=== PATIENT | male | born 1985 | race Caucasian/White ===

== ENCOUNTER 2017-09-08 14:43 | Emergency (ER) | payer OTHER ==
[2017-09-08] MEDS ORDERED: HYDROmorphone 1 MG/ML Syringe IVPUSH ONE (14:51)
[2017-09-08] MEDS ORDERED: Sodium Chloride 0.9% 1,000 ML IV SCH ×2 (15:00)
[2017-09-08] MEDS ORDERED: Midazolam 1 MG/ML 2 ML SDV IVPUSH ONE ×2 (15:02→15:15)
--- NOTE | 2017-09-08 15:07 | EDM.PDOC ---
<Edmundo Santiago - Last Filed: 09/08/17 15:07> ED HPI GENERAL MEDICAL PROBLEM - General Chief Complaint: Lower Extremity Injury/Pain Stated Complaint: [facility] Time Seen by Provider: 09/08/17 15:07 Right Leg Pain Score (Numeric/FACES): 8 - Related Data Allergies Allergy/AdvReac Type Severity Reaction Status Date / Time No Known Allergies Allergy Verified 09/08/17 14:58 Home Meds: Home Meds . [No Known Home Meds] 09/08/17 [History] Course - Vital Signs Last Recorded V/S: Last Vital Signs Temp 98.0 F 09/08/17 15:54 Pulse 105 H 09/08/17 15:54 Resp 18 09/08/17 15:54 BP 154/84 H 09/08/17 15:21 Pulse Ox 100 09/08/17 15:54 - Orders/Labs/Meds Orders: Active Orders 24 hr Category Date Time Status Ankle Min 3V Rt [CR] Stat Exams 09/08/17 15:13 Taken Ankle wo Cont Rt [CT] Stat Exams 09/08/17 16:55 Taken Foot wo Cont Rt [CT] Stat Exams 09/08/17 16:54 Taken Tibia Fibula Rt [CR] Stat Exams 09/08/17 15:13 Taken Labs: Laboratory Tests 09/08/17 09/08/17 Range/Units 14:59 14:59 WBC 12.06 H (4.23-9.07) K/mm3 RBC 4.72 (4.63-6.08) M/mm3 Hgb 14.8 (13.7-17.5) gm/L Hct 44.3 (40.1-51.0) % MCV 93.9 H (79.0-92.2) fl MCH 31.4 (25.7-32.2) pg MCHC 33.4 (32.2-35.5) g/dl RDW Std Deviation 41.9 (35.1-43.9) fL Plt Count 309 (163-337) K/mm3 MPV 9.7 (9.4-12.3) fl Neut % (Auto) 80.6 H (34.0-67.9) % Lymph % (Auto) 14.2 L (21.8-53.1) % [place] % (Auto) 4.9 L (5.3-12.2) % Eos % (Auto) 0.1 L (0.8-7.0) Baso % (Auto) 0.1 (0.1-1.2) % Neut # (Auto) 9.73 H (1.78-5.38) K/mm3 Lymph # (Auto) 1.71 (1.32-3.57) K/mm3 [place] # (Auto) 0.59 (0.30-0.82) K/mm3 Eos # (Auto) 0.01 L (0.04-0.54) K/mm3 Baso # (Auto) 0.01 (0.01-0.08) K/mm3 Sodium 144 (136-145) mEq/L Potassium 3.8 (3.5-5.1) mEq/L Chloride 105 (98-107) mEq/L Carbon Dioxide 27 (21-32) mEq/L Anion Gap 15.8 H (5-15) BUN 14 (7-18) mg/dL Creatinine 0.9 (0.7-1.3) mg/dL Est Cr Clr Drug Dosing 116.74 mL/min Estimated GFR (MDRD) > 60 (>60) mL/min BUN/Creatinine Ratio 15.6 (14-18) Glucose 97 (74-106) mg/dL Calcium 10.0 (8.5-10.1) mg/dL Total Bilirubin 0.6 (0.2-1.0) mg/dL AST 44 H (15-37) U/L ALT 46 (16-63) U/L Alkaline Phosphatase 95 (46-116) U/L Total Protein 8.6 H (6.4-8.2) g/dl Albumin 4.5 (3.4-5.0) g/dl Globulin 4.1 gm/dL Albumin/Globulin Ratio 1.1 (1-2) Meds: Medications Discontinued Medications Generic Name Dose Route Start Last Admin Trade Name Freq PRN Reason Stop Dose Admin Fentanyl 100 mcg 09/08/17 15:14 09/08/17 15:20 Sublimaze IVPUSH 09/08/17 15:15 100 mcg ONETIME ONE Administration Hydromorphone HCl 1 mg 09/08/17 14:51 09/08/17 14:57 Dilaudid IVPUSH 09/08/17 14:52 1 mg ONETIME ONE Administration Hydromorphone HCl 0.5 mg 09/08/17 16:56 09/08/17 16:59 Dilaudid IVPUSH 09/08/17 16:57 0.5 mg ONETIME ONE Administration Sodium Chloride 1,000 mls @ 150 mls/hr 09/08/17 15:00 09/08/17 16:04 Normal Saline IV 150 mls/hr ASDIRECTED JERRICA Administration Sodium Chloride 1,000 mls @ 999 mls/hr 09/08/17 15:00 09/08/17 14:57 Normal Saline IV 999 mls/hr ASDIRECTED JERRICA Administration Midazolam HCl 2.5 mg 09/08/17 15:02 09/08/17 15:07 Versed 1 Mg/Ml IVPUSH 09/08/17 15:03 2.5 mg ONETIME ONE Administration Midazolam HCl 2 mg 09/08/17 15:15 09/08/17 15:19 Versed 1 Mg/Ml IVPUSH 09/08/17 15:16 2 mg ONETIME ONE Administration Departure - Departure Disposition: DC/Tfer to [facility] 02 Clinical Impression: Fracture of ankle, trimalleolar, closed Qualifiers: Encounter type: initial encounter Laterality: right Qualified Code(s): S82.851A - Displaced trimalleolar fracture of right lower leg, initial encounter for closed fracture - Discharge Information Referrals: PCP,None [Primary Care Provider] - Forms: ED Department Discharge - My Orders Last 24 Hours: My Active Orders 09/08/17 15:13 Ankle Min 3V Rt [CR] Stat Tibia Fibula Rt [CR] Stat 09/08/17 16:54 Foot wo Cont Rt [CT] Stat 09/08/17 16:55 Ankle wo Cont Rt [CT] Stat - Assessment/Plan Last 24 Hours: My Active Orders 09/08/17 15:13 Ankle Min 3V Rt [CR] Stat Tibia Fibula Rt [CR] Stat 09/08/17 16:54 Foot wo Cont Rt [CT] Stat 09/08/17 16:55 Ankle wo Cont Rt [CT] Stat <Fausto Lui O - Last Filed: 09/08/17 22:32> ED HPI GENERAL MEDICAL PROBLEM - General Source of Information: Reports: Patient History Limitations: Reports: No Limitations - History of Present Illness INITIAL COMMENTS - FREE TEXT/NARRATIVE: Patient is a 31-year-old male who presents to the ED via ambulance with a crush injury with obvious displaced fracture of the right distal tib-fib. This occurred on the job site. Patient states while working underneath a irby. For some reason the break holding the cable was released causing the swivel which weighs approximately 3 tons to fall from a undetermined height landing on the patient's right lower leg. Patient sustained no additional injuries. Ambulance was called and the patient was splinted and transported to the ED. Patient rates the pain a 8 out of 10 localized to the fracture area. No numbness or tingling or sensory deficits distally. Still able to move his toes freely. Patient has no additional past medical history and is currently taking no medications. Patient does smoke one pack every 2 days. Alcohol use rarely. Denies recreational drug use. Last meal was at 5:00 this morning. Review of Systems - Review of Systems Review Of Systems: See Below Respiratory: Reports: No Symptoms Cardiovascular: Reports: No Symptoms GI/Abdominal: Reports: No Symptoms Musculoskeletal: Reports: Foot Pain (right), Joint Pain (right ankle), Joint Swelling (right ankle). Denies: Neck Pain, Back Pain Neurological: Denies: Numbness, Tingling ED EXAM, GENERAL - Physical Exam Exam: See Below Exam Limited By: No Limitations General Appearance: Alert, WD/WN, Moderate Distress Ears: Hearing Grossly Normal Nose: Normal Inspection Throat/Mouth: Normal Voice, No Airway Compromise Head: Atraumatic, Normocephalic Neck: Normal Inspection, Supple Respiratory/Chest: No Respiratory Distress, Lungs Clear, Normal Breath Sounds, No Accessory Muscle Use, Chest Non-Tender Cardiovascular: Normal Peripheral Pulses, Regular Rate, Rhythm Peripheral Pulses: 2+: Radial (L), Dorsalis Pedis (R) Extremities: Other (Obvious deformity of the right ankle with foot externally rotated. Foot is red in color cool to touch. No sensory changes noted. ) Neurological: Alert, Oriented, CN II-XII Intact, Normal Cognition, No Motor/ Sensory Deficits Psychiatric: Normal Affect, Normal Mood Skin Exam: Warm, Dry Course - Orders/Labs/Meds Labs: Laboratory Tests 09/08/17 09/08/17 Range/Units 14:59 14:59 WBC 12.06 H (4.23-9.07) K/mm3 RBC 4.72 (4.63-6.08) M/mm3 Hgb 14.8 (13.7-17.5) gm/L Hct 44.3 (40.1-51.0) % MCV 93.9 H (79.0-92.2) fl MCH 31.4 (25.7-32.2) pg MCHC 33.4 (32.2-35.5) g/dl RDW Std Deviation 41.9 (35.1-43.9) fL Plt Count 309 (163-337) K/mm3 MPV 9.7 (9.4-12.3) fl Neut % (Auto) 80.6 H (34.0-67.9) % Lymph % (Auto) 14.2 L (21.8-53.1) % [place] % (Auto) 4.9 L (5.3-12.2) % Eos % (Auto) 0.1 L (0.8-7.0) Baso % (Auto) 0.1 (0.1-1.2) % Neut # (Auto) 9.73 H (1.78-5.38) K/mm3 Lymph # (Auto) 1.71 (1.32-3.57) K/mm3 [place] # (Auto) 0.59 (0.30-0.82) K/mm3 Eos # (Auto) 0.01 L (0.04-0.54) K/mm3 Baso # (Auto) 0.01 (0.01-0.08) K/mm3 Sodium 144 (136-145) mEq/L Potassium 3.8 (3.5-5.1) mEq/L Chloride 105 (98-107) mEq/L Carbon Dioxide 27 (21-32) mEq/L Anion Gap 15.8 H (5-15) BUN 14 (7-18) mg/dL Creatinine 0.9 (0.7-1.3) mg/dL Est Cr Clr Drug Dosing 116.74 mL/min Estimated GFR (MDRD) > 60 (>60) mL/min BUN/Creatinine Ratio 15.6 (14-18) Glucose 97 (74-106) mg/dL Calcium 10.0 (8.5-10.1) mg/dL Total Bilirubin 0.6 (0.2-1.0) mg/dL AST 44 H (15-37) U/L ALT 46 (16-63) U/L Alkaline Phosphatase 95 (46-116) U/L Total Protein 8.6 H (6.4-8.2) g/dl Albumin 4.5 (3.4-5.0) g/dl Globulin 4.1 gm/dL Albumin/Globulin Ratio 1.1 (1-2) - Re-Assessments/Exams Free Text/Narrative Re-Assessment/Exam: Patient is a 31-year-old male transported by ambulance with obvious unstable fracture to the distal tib-fib presumably trimalleolar. Patient had palpable dorsalis pedis with Doppler signal to the posterior tibialis. Foot was cool to touch mildly red with no sensory or motor deficits noted. Administered 1 mg IV of Dilaudid and 2.5 mg of Versed. O2 sats decreased to 89% on room air, supplemental O2 applied via NC 2lpm. Telemetry applied as well. Attempted to reduce the fracture with no luck. Ordered an additional 100 g of fentanyl and 2 [address] Had Dr[address] Yeager assist me in reducing the fracture. This was completed with no complications. Posteriors splint along with a stirrup splint applied with no complications. Patient had full sensory motor deficits distally present. Palpable dorsalis pedis. X-ray of the right ankle is being obtained. Had polar ice machine applied. Will arrange transport to [place] for orthopedic evaluation and surgery. X-ray of the right ankle: Reveals mild to moderate displaced trimalleolar fracture. Splint in place. Reviewed with Dr. Santiago. 09/08/17 16:[address] Attila Richardson Orthopedic Surgeon at [facility]. He has accepted the patient. We are waiting for the ambulance to arrive. They stated one hour. Transfer documents have been completed. 09/08/17 16:52 Further review of the x-ray I do believe there are fractures associated to the foot. Thus will obtain CT of the ankle and foot ordered. CT of the ankle/foot revealed: Comminuted displaced trimalleolar fracture- dislocation of the right ankle. Most of the fracture segments are displaced laterally. All films have been sent to [facility] and [facility] for further review by orthopedic surgeon. Departure - Departure Time of Disposition: 17:17 Condition: Good
[2017-09-08] MEDS ORDERED: fentaNYL 100 MCG/2 ML SDV IVPUSH ONE (15:14)
[2017-09-08] MEDS ORDERED: HYDROmorphone 0.5 MG/0.5 ML Syringe IVPUSH ONE (16:56)
--- NOTE | 2017-09-09 09:54 | CT ---
CT right ankle Technique: Multiple axial sections were obtained through the right ankle. Reconstructed coronal and sagittal images were reviewed. Mildly comminuted fracture identified within the medial malleolus. Displacement is seen inferior and laterally. Mildly comminuted lateral malleolus fracture is seen with displacement by about a shaft width. The tibia is shifted in a lateral direction by about 1.5 cm. Small posterior fragments are seen off the posterior malleolus compatible with minimal fracturing. Diffuse soft tissue swelling is identified. Impression: 1. Trimalleolar fracture. Medial and lateral malleolus fracture show significant displacement. Unstable ankle mortise is seen with shifting of the talus in a lateral direction as compared to the tibia. 2. Soft tissue swelling is noted. Diagnostic code #3 I agree with preliminary report issued by [facility] ([facility] report finalized on 09/08/17, 7:03 PM Central Time)
--- NOTE | 2017-09-09 09:54 | CR ---
Right ankle: Four views of the right ankle were obtained. Comparison: No prior study. Displaced medial and lateral malleolar fractures are seen. Medial malleolus fracture is mildly comminuted. Lateral malleolus fracture is also comminuted. Small fracture identified off the posterior malleolus. Fiberglass cast or splint is in place. There is shifting of the tibia and fibula in a medial direction in relation ro the talus. Impression: 1. Displaced and unstable trimalleolar fractures. Diagnostic code #3
--- NOTE | 2017-09-09 09:54 | CT ---
CT right foot Technique: Multiple axial sections through the right foot were obtained. Intravenous contrast was not utilized. Reconstructed coronal and sagittal images were reviewed. Findings: Ankle fracture again seen showing displacement and comminution. Talus and calcaneus appear intact. Tarsal bones show no fracture. Metatarsals appear intact. First through fifth toes also appear to be intact. Soft tissue swelling extends from the ankle into the foot. Impression: 1. Displaced ankle fracture as described on CT ankle exam. 2. No acute bony abnormality seen on CT study of the right foot. Diagnostic code #3 I agree with preliminary report issued by [facility] ([facility] report finalized on 09/08/17, 7:03 PM Central Time)
--- NOTE | 2017-09-09 09:54 | CR ---
Right tibia and fibula: Two views of the right tibia and fibula were obtained. Displaced trimalleolar fracture is again noted. Fiberglass cast or splint is in place. No proximal abnormality is identified within the right tibia or fibula. Impression: 1. Ankle fracture is again seen. 2. No proximal abnormality is seen within the right tibia or fibula. Diagnostic code #3
== END 2017-09-08 17:20 ==
LOC: JD.ED 14:43
DX: S82.851A Displaced trimalleolar fracture of right lower leg, initial encounter for closed fracture (principal); W23.0XXA Caught, crushed, jammed, or pinched between moving objects, initial encounter
CPT/HCPCS: 27818; 36415; 73590; 73610; 73700; 80053; 85025; 96361; 96374; 96375; 96376; 99285; J1170; J2250; J3010; J7040; 27840; 29515; 99284-25

== ENCOUNTER 2019-12-10 09:49 | Emergency (ER) | payer OTHER ==
--- NOTE | 2019-12-10 10:40 | EDM.PDOC ---
<Lien Mathew - Last Filed: 12/10/19 10:54> ED HPI GENERAL MEDICAL PROBLEM - General Chief Complaint: Upper Extremity Injury/Pain Stated Complaint: JAW PAIN AND RT ARM PAIN Time Seen by Provider: 12/10/19 10:19 Source of Information: Reports: Patient History Limitations: Reports: No Limitations - History of Present Illness INITIAL COMMENTS - FREE TEXT/NARRATIVE: 34-year-old male presents with right upper arm pain that started two days ago. He has also been experiencing a "locking" sensation in his throat and jaw. The right arm pain is localized over the right deltoid and occasionally radiates into right forearm. He rates the pain at a 5/10 that comes and goes. No numbness or tingling into fingers but some tingling localized over the deltoid pain. Denies loss of ROM or any injury to the area. He did state that sleeping on it seems to make the pain worse. He has a history of a crush injury to his right lower extremity that has caused him to have constant pain throughout the right side of his body, and he feels that may be contributing to his current pain. He also has a history of anxiety and depression but states he is no longer taking medications for it because they made him tired, and he states he was told by his primary care provider and psychiatrist that he is a "pill seeker." He also has acid reflux that he is treating with pantoprazole. Onset: Other (2 days ago) Duration: Intermittent Location: Reports: Neck, Upper Extremity, Right Quality: Reports: Ache Severity: Moderate Worsens with: Reports: Other (sleeping on it) Associated Symptoms: Reports: Other ("jaw locking" although his description appears to be more like throat tightening). Denies: Chest Pain, Fever/Chills, Shortness of Breath, Weakness Right Arm Pain Score (Numeric/FACES): 5 - Related Data Allergies Allergy/AdvReac Type Severity Reaction Status Date / Time No Known Allergies Allergy Verified 12/10/19 09:58 Home Meds: Home Meds ALPRAZolam [Alprazolam] 0.5 mg PO BID PRN 12/10/19 [History] Lisinopril [Zestril] 10 mg PO DAILY 12/10/19 [History] Naproxen [Naprosyn] 500 mg PO Q12HR #14 tab 12/10/19 [Rx] Past Medical History Other HEENT History: wears glasses Cardiovascular History: Reports: Hypertension Gastrointestinal History: Reports: GERD (treated with Pantoprazole) Other Musculoskeletal History: work-related crush injury to right lower extremity Psychiatric History: Reports: Anxiety, Depression - Past Surgical History HEENT Surgical History: Reports: Tonsillectomy GI Surgical History: Reports: Hernia, Abdominal Musculoskeletal Surgical History: Reports: Other (See Below) Other Musculoskeletal Surgeries/Procedures:: right ankle surgery-fusion Social & Family History - Tobacco Use Smoking Status *Q: Former Smoker Used Tobacco, but Quit: Yes Month/Year Tobacco Last Used: quit 3 years ago - Caffeine Use Caffeine Use: Reports: Soda - Living Situation & Occupation Occupation: Unemployed Review of Systems - Review of Systems Review Of Systems: See Below Constitutional: Reports: No Symptoms Eyes: Reports: Glasses Ears: Reports: No Symptoms Nose: Reports: No Symptoms Mouth/Throat: Reports: Other ("jaw locking" although he points more to his throat) Respiratory: Reports: No Symptoms Cardiovascular: Reports: No Symptoms GI/Abdominal: Reports: Other (acid reflux). Denies: Abdominal Pain, Constipation, Diarrhea, Nausea, Vomiting Genitourinary: Reports: Other (darker yellow urine, feels he may be dehydrated) . Denies: Dysuria, Hematuria Musculoskeletal: Reports: Arm Pain (right shoulder/deltoid pain), Leg Pain ( right leg (constant due to history of crush injury)), Muscle Pain (right deltoid ). Denies: Neck Pain, Back Pain Skin: Reports: No Symptoms Neurological: Reports: Tingling (localized over the right deltoid, none into the hand). Denies: Headache, Numbness, Trouble Speaking, Weakness Psychiatric: Reports: Depression, Anxiety ED EXAM, GENERAL - Physical Exam Exam: See Below Exam Limited By: No Limitations General Appearance: Alert, WD/WN, No Apparent Distress Throat/Mouth: Normal Inspection, Normal Lips, Normal Oropharynx, Normal Voice, No Airway Compromise Head: Atraumatic, Normocephalic Neck: Normal Inspection, Supple, Non-Tender, Full Range of Motion Respiratory/Chest: No Respiratory Distress, Lungs Clear, Normal Breath Sounds, No Accessory Muscle Use, Chest Non-Tender Cardiovascular: Normal Peripheral Pulses, Regular Rate, Rhythm, No Murmur Peripheral Pulses: 3+: Radial (L), Radial (R) GI/Abdominal: Normal Bowel Sounds, Soft, Non-Tender, No Distention Back Exam: Normal Inspection, Full Range of Motion. No: Paraspinal Tenderness, Vertebral Tenderness Extremities: Normal Inspection, Normal Range of Motion, Normal Capillary Refill , Arm Pain (over right deltoid). No: Joint Swelling, Increased Warmth, Redness Neurological: Alert, Oriented, Normal Cognition, No Motor/Sensory Deficits Psychiatric: Anxious Skin Exam: Warm, Dry, Intact, Normal Color, No Rash Lymphatic: No Adenopathy Course - Vital Signs Last Recorded V/S: Last Vital Signs Temp 98.4 F 12/10/19 10:01 Pulse 87 12/10/19 10:01 Resp 13 12/10/19 10:01 BP 138/100 H 12/10/19 10:01 Pulse Ox 100 12/10/19 10:01 Departure - Departure Disposition: Home, Self-Care 01 Clinical Impression: Shoulder pain, right Qualifiers: Chronicity: acute Qualified Code(s): M25.511 - Pain in right shoulder - Discharge Information Prescriptions: Naproxen [Naprosyn] 500 mg PO Q12HR #14 tab Instructions: Shoulder Pain Referrals: Tomasa Sin PA-C [Primary Care Provider] - Forms: ED Department Discharge Additional Instructions: Rest arm and shoulder, no heavy lifting, alternate ice and heat as needed. Naprosyn 500 mg twice daily for pain and inflammation. [facility] See Orthopedist tomorrow as planned. Sepsis Event Note - Evaluation Sepsis Screening Result: No Definite Risk - Focused Exam Vital Signs: Vital Signs Temp Pulse Resp BP Pulse Ox 12/10/19 10:01 98.4 F 87 13 138/100 H 100 Date Exam was Performed: 12/10/19 Time Exam was Performed: 10:54 <Deangelo Tong - Last Filed: 12/10/19 20:20> Course - Re-Assessments/Exams Free Text/Narrative Re-Assessment/Exam: 12/10/19 20:15 Initial hx and exam was done by FITO Kebede student. I agree with her hx and exam as documented. I have also interviewed and examined patient. 12/10/19 20:18 Departure - Departure Time of Disposition: 10:45 Condition: Fair Sepsis Event Note - Focused Exam Date Exam was Performed: 12/10/19 Time Exam was Performed: 20:15
== END 2019-12-10 12:00 | disposition home or self-care (01) ==
LOC: JD.ED 09:49
DX: M25.511 Pain in right shoulder (principal); K21.9 Gastro-esophageal reflux disease without esophagitis; I10 Essential (primary) hypertension; F41.9 Anxiety disorder, unspecified; Z79.899 Other long term (current) drug therapy; Z87.891 Personal history of nicotine dependence
CPT/HCPCS: 99283

== ENCOUNTER 2019-12-12 17:27 | Emergency (ER) | payer OTHER ==
--- NOTE | 2019-12-12 18:20 | EDM.PDOC ---
ED HPI GENERAL MEDICAL PROBLEM - General Chief Complaint: Lower Extremity Injury/Pain Stated Complaint: R FOOT PAIN Time Seen by Provider: 12/12/19 17:38 Source of Information: Reports: Patient, RN Notes Reviewed History Limitations: Reports: No Limitations - History of Present Illness INITIAL COMMENTS - FREE TEXT/NARRATIVE: Patient is a 34-year-old male who presents to the ED for evaluation of increased right foot pain. Patient notes that he has seen Dr. Daniel Soriano through the bone and joint clinic at [facility] multiple times for a crush injury that he had of his right foot in 2017. Patient notes that he has been given prescriptions for tramadol for pain relief, but this does not seem to be relieving the pain much any longer. He notes that he had an appointment with Dr. Soriano yesterday, and it felt like he could wait about 4 to 6 weeks for surgery, but he states today the pain has gotten too painful and he does not think he can wait 4 to 6 weeks, he was wanting to know if we could contact Dr. Soriano and try to get the surgery moved sooner rather than later. He notes that he has had about 8 surgeries to this ankle and right foot. Right Foot Pain Score (Numeric/FACES): 10 - Related Data Allergies Allergy/AdvReac Type Severity Reaction Status Date / Time No Known Allergies Allergy Verified 12/10/19 09:58 Home Meds: Home Meds Lisinopril [Zestril] 10 mg PO DAILY 12/10/19 [History] Pantoprazole [ProTONIX] 40 mg PO DAILY 12/12/19 [History] Past Medical History - Past Health History Medical/Surgical History: Denies Medical/Surgical History Other HEENT History: wears glasses Cardiovascular History: Reports: Hypertension Gastrointestinal History: Reports: GERD Other Musculoskeletal History: work-related crush injury to right lower extremity Psychiatric History: Reports: Anxiety, Depression - Past Surgical History HEENT Surgical History: Reports: Oral Surgery GI Surgical History: Reports: Hernia, Abdominal Musculoskeletal Surgical History: Reports: Other (See Below) Other Musculoskeletal Surgeries/Procedures:: right ankle surgery-fusion Social & Family History - Family History Family Medical History: Noncontributory - Tobacco Use Smoking Status *Q: Never Smoker - Caffeine Use Caffeine Use: Reports: Other - Recreational Drug Use Recreational Drug Use: No - Living Situation & Occupation Occupation: Unemployed Review of Systems - Review of Systems Review Of Systems: Comprehensive ROS is negative, except as noted in HPI. Musculoskeletal: Reports: Foot Pain (R foot), Joint Pain (R ankle) Neurological: Denies: Numbness, Tingling ED EXAM, GENERAL - Physical Exam Exam: See Below Exam Limited By: No Limitations General Appearance: Alert, WD/WN, No Apparent Distress Respiratory/Chest: No Respiratory Distress, Lungs Clear, Normal Breath Sounds, No Accessory Muscle Use, Chest Non-Tender Cardiovascular: Normal Peripheral Pulses, Regular Rate, Rhythm, No Murmur Peripheral Pulses: 3+: Dorsalis Pedis (L), Dorsalis Pedis (R) Extremities: Normal Inspection, Normal Range of Motion, Normal Capillary Refill , Other (Multiple scars noted to right ankle and right foot, presumably due to previous surgeries.) Neurological: Alert, Oriented, Normal Cognition, No Motor/Sensory Deficits Psychiatric: Normal Affect, Normal Mood Skin Exam: Warm, Dry, Intact, Normal Color, No Rash, Other (Multiple scars noted to right ankle and foot due to previous surgeries.) Course - Vital Signs Last Recorded V/S: Last Vital Signs Temp 99.8 F 12/12/19 17:32 Pulse 90 12/12/19 17:32 Resp 14 12/12/19 17:32 BP 152/101 H 12/12/19 17:32 Pulse Ox 99 12/12/19 17:32 - Re-Assessments/Exams Free Text/Narrative Re-Assessment/Exam: 12/12/19 18:19 Patient presents to the ED for the evaluation of right foot pain. I did call [facility] and was able to talk with Dr. Soriano, he states he would be glad to fill out some of the workforce safety paperwork to push the gentleman surgery up further however he cannot do this tonight or over the weekend, he will be in contact with the patient early next week to try to get this situated for him. He does suggest giving the patient some hydrocodone/acetaminophen for further management. I will let the patient know what Dr. Soriano told me, and try to provide the patient with about a week's worth of medication so he can be rescheduled to see Dr. Soriano. Departure - Departure Time of Disposition: 18:20 Disposition: Home, Self-Care 01 Condition: Fair Clinical Impression: Right foot pain - Discharge Information *PRESCRIPTION DRUG MONITORING PROGRAM REVIEWED*: Yes *COPY OF PRESCRIPTION DRUG MONITORING REPORT IN PATIENT ALLY: No Instructions: Pain Medicine Instructions, [id number] Referrals: Tomasa Sin PA-C [Primary Care Provider] - Forms: ED Department Discharge Additional Instructions: You have been evaluated in the ED for your R foot pain Your x-ray demonstrated Please use ice as tolerated to the affected area. You were given a prescription for a strong pain medication, hydrocodone/ acetaminophen 5/325, please take 1 tab every 6 hours as needed for pain not relieved by Tylenol or ibuprofen alone. Please note this does contain Tylenol in it, so do not take more than 4000 mg in a 24-hour time span. These medications can be addictive, so please take as few as possible to achieve adequate pain control. These meds can also be quite constipating, recommend that you increase your oral fluid intake and take a stool softener like MiraLAX while taking these medications. Dr. Soriano was called on your behalf, and states that he will start the [employer] paperwork sometime early next week, and hopes to get your surgery moved sooner rather than later, he states you will need to be re-evaluated in clinic as well , he will call to schedule you for this appointment sometime again early next week. Please return to ED if your symptoms should change or worsen. Sepsis Event Note - Evaluation Sepsis Screening Result: No Definite Risk - Focused Exam Vital Signs: Vital Signs Temp Pulse Resp BP Pulse Ox 12/12/19 17:32 99.8 F 90 14 152/101 H 99 Date Exam was Performed: 12/12/19 Time Exam was Performed: 18:32
== END 2019-12-12 18:40 | disposition home or self-care (01) ==
LOC: JD.ED 17:27
DX: M79.671 Pain in right foot (principal); I10 Essential (primary) hypertension; K21.9 Gastro-esophageal reflux disease without esophagitis; Z79.899 Other long term (current) drug therapy
CPT/HCPCS: 99282; 99283

== ENCOUNTER 2019-12-14 23:01 | Emergency (ER) | payer OTHER ==
[2019-12-14] MEDS ORDERED: LORazepam 1 MG Tab PO ONE (23:46)
[2019-12-15] MEDS ORDERED: OLANZapine 5 MG Tab PO ONE ×2 (00:29→01:47)
[2019-12-15] MEDS ORDERED: LORazepam 1 MG Tab PO ONE ×2 (01:00→01:47)
--- NOTE | 2019-12-15 02:14 | EDM.PDOC ---
<Edmundo Santiago - Last Filed: 12/15/19 17:06> ED HPI GENERAL MEDICAL PROBLEM - General Chief Complaint: Behavioral/Psych Stated Complaint: MENTAL HEALTH EV Time Seen by Provider: 12/14/19 23:35 - Related Data Allergies Allergy/AdvReac Type Severity Reaction Status Date / Time No Known Allergies Allergy Verified 12/14/19 23:19 Home Meds: Home Meds Lisinopril [Zestril] 10 mg PO DAILY 12/10/19 [History] Pantoprazole [ProTONIX] 40 mg PO DAILY 12/12/19 [History] Course - Vital Signs Last Recorded V/S: Last Vital Signs Temp 98.5 F 12/14/19 23:11 Pulse 79 12/15/19 06:00 Resp 16 12/14/19 23:11 BP 185/101 H 12/14/19 23:11 Pulse Ox 98 12/15/19 06:00 - Orders/Labs/Meds Labs: Laboratory Tests 12/14/19 12/14/19 12/15/19 Range/Units 23:59 23:59 08:25 WBC 12.46 H (4.23-9.07) K/mm3 RBC 5.09 (4.63-6.08) M/mm3 Hgb 15.8 (13.7-17.5) gm/dl Hct 47.0 (40.1-51.0) % MCV 92.3 H (79.0-92.2) fl MCH 31.0 (25.7-32.2) pg MCHC 33.6 (32.2-35.5) g/dl RDW Std Deviation 43.2 (35.1-43.9) fL Plt Count 320 (163-337) K/mm3 MPV 9.2 L (9.4-12.3) fl Neut % (Auto) 71.6 H (34.0-67.9) % Lymph % (Auto) 20.6 L (21.8-53.1) % Wythe % (Auto) 7.0 (5.3-12.2) % Eos % (Auto) 0.4 L (0.8-7.0) Baso % (Auto) 0.1 (0.1-1.2) % Neut # (Auto) 8.92 H (1.78-5.38) K/mm3 Lymph # (Auto) 2.57 (1.32-3.57) K/mm3 Wythe # (Auto) 0.87 H (0.30-0.82) K/mm3 Eos # (Auto) 0.05 (0.04-0.54) K/mm3 Baso # (Auto) 0.01 (0.01-0.08) K/mm3 Manual Slide Review Abnormal smear Sodium 139 (136-145) mEq/L Potassium 3.4 L (3.5-5.1) mEq/L Chloride 102 (98-107) mEq/L Carbon Dioxide 26 (21-32) mEq/L Anion Gap 14.4 (5-15) BUN 13 (7-18) mg/dL Creatinine 1.0 (0.7-1.3) mg/dL Est Cr Clr Drug Dosing TNP Estimated GFR (MDRD) > 60 (>60) mL/min BUN/Creatinine Ratio 13.0 L (14-18) Glucose 119 H (74-106) mg/dL Calcium 9.6 (8.5-10.1) mg/dL Total Bilirubin 0.4 (0.2-1.0) mg/dL AST 22 (15-37) U/L ALT 48 (16-63) U/L Alkaline Phosphatase 87 (46-116) U/L Total Protein 8.3 H (6.4-8.2) g/dl Albumin 4.3 (3.4-5.0) g/dl Globulin 4.0 gm/dL Albumin/Globulin Ratio 1.1 (1-2) Salicylates (2.8-20) mg/dL Urine Opiates Screen (BKVYNZ=190) Ur Buprenorphine Scrn (CUTOFF=10) Ur Oxycodone Screen (HCV2OD=789) Urine Methadone Screen (AST5YX=796) Ur Propoxyphene Screen (OTYQUO=108) Acetaminophen 0 L (10-30) ug/mL Ur Barbiturates Screen (ATIWQS=824) Ur Tricyclics Screen (FVQUVM=214) Ur Phencyclidine Scrn (CUTOFF=25) Ur Amphetamine Screen (TKUUAG=589) U Methamphetamines Scrn (PFGYXO=679) U Benzodiazepines Scrn (WDKFWX=676) U Cocaine Metab Screen (NWXXBL=261) U Marijuana (THC) Screen (CUTOFF=50) Ethyl Alcohol 0.00 (0.00) gm% 12/15/19 12/15/19 Range/Units 08:25 09:28 WBC (4.23-9.07) K/mm3 RBC (4.63-6.08) M/mm3 Hgb (13.7-17.5) gm/dl Hct (40.1-51.0) % MCV (79.0-92.2) fl MCH (25.7-32.2) pg MCHC (32.2-35.5) g/dl RDW Std Deviation (35.1-43.9) fL Plt Count (163-337) K/mm3 MPV (9.4-12.3) fl Neut % (Auto) (34.0-67.9) % Lymph % (Auto) (21.8-53.1) % Wythe % (Auto) (5.3-12.2) % Eos % (Auto) (0.8-7.0) Baso % (Auto) (0.1-1.2) % Neut # (Auto) (1.78-5.38) K/mm3 Lymph # (Auto) (1.32-3.57) K/mm3 Wythe # (Auto) (0.30-0.82) K/mm3 Eos # (Auto) (0.04-0.54) K/mm3 Baso # (Auto) (0.01-0.08) K/mm3 Manual Slide Review Sodium (136-145) mEq/L Potassium (3.5-5.1) mEq/L Chloride (98-107) mEq/L Carbon Dioxide (21-32) mEq/L Anion Gap (5-15) BUN (7-18) mg/dL Creatinine (0.7-1.3) mg/dL Est Cr Clr Drug Dosing Estimated GFR (MDRD) (>60) mL/min BUN/Creatinine Ratio (14-18) Glucose (74-106) mg/dL Calcium (8.5-10.1) mg/dL Total Bilirubin (0.2-1.0) mg/dL AST (15-37) U/L ALT (16-63) U/L Alkaline Phosphatase (46-116) U/L Total Protein (6.4-8.2) g/dl Albumin (3.4-5.0) g/dl Globulin gm/dL Albumin/Globulin Ratio (1-2) Salicylates 2.6 L (2.8-20) mg/dL Urine Opiates Screen Presumptive positive H (JIDWWC=752) Ur Buprenorphine Scrn Negative (CUTOFF=10) Ur Oxycodone Screen Negative (YQT9UR=766) Urine Methadone Screen Negative (EBS4BJ=071) Ur Propoxyphene Screen Negative (JDCUWP=104) Acetaminophen (10-30) ug/mL Ur Barbiturates Screen Negative (PVJGPJ=144) Ur Tricyclics Screen Negative (RKXYSN=396) Ur Phencyclidine Scrn Negative (CUTOFF=25) Ur Amphetamine Screen Negative (GZOAWG=040) U Methamphetamines Scrn Negative (KFUWDU=762) U Benzodiazepines Scrn Presumptive positive H (UDQGLU=033) U Cocaine Metab Screen Negative (XKWZUL=228) U Marijuana (THC) Screen Presumptive positive H (CUTOFF=50) Ethyl Alcohol (0.00) gm% Meds: Medications Discontinued Medications Generic Name Dose Route Start Last Admin Trade Name Freq PRN Reason Stop Dose Admin Sodium Chloride 1,000 mls @ 150 mls/hr 12/15/19 02:15 12/15/19 09:08 Sodium Chloride 0.45% IV 150 mls/hr ASDIRECTED JERRICA Administration Lorazepam 1 mg 12/14/19 23:46 12/14/19 23:50 Ativan PO 12/14/19 23:47 1 mg ONETIME ONE Administration Lorazepam 1 mg 12/15/19 01:00 12/15/19 01:05 Ativan PO 12/15/19 01:01 1 mg ONETIME ONE Administration Lorazepam 1 mg 12/15/19 01:47 12/15/19 01:52 Ativan PO 12/15/19 01:48 1 mg ONETIME ONE Administration Lorazepam 2 mg 12/15/19 02:15 12/15/19 02:29 Ativan IVPUSH 12/15/19 02:16 2 mg ONETIME ONE Administration Olanzapine 5 mg 12/15/19 00:29 12/15/19 00:32 Zyprexa PO 12/15/19 00:30 5 mg ONETIME ONE Administration Olanzapine 5 mg 12/15/19 01:47 12/15/19 01:53 Zyprexa PO 12/15/19 01:48 5 mg ONETIME ONE Administration Sodium Chloride 10 ml 12/15/19 02:15 12/15/19 02:29 Saline Flush FLUSH 10 ml ASDIRECTED PRN Administration Keep Vein Open - Re-Assessments/Exams Free Text/Narrative Re-Assessment/Exam: 12/15/19 17:06 We have acceptance at [facility] will deliver him this evening. I did did discuss this with the patient and he is willing to go. Departure - Departure Time of Disposition: 17:07 Disposition: DC/Tfer to Psych Hosp/Unit [facility] Clinical Impression: Anxiety, Bipolar 1 disorder, manic, moderate - Discharge Information Referrals: Tomasa Sin PA-C [Primary Care Provider] - Forms: ED Department Discharge Sepsis Event Note - Focused Exam Date Exam was Performed: 12/15/19 Time Exam was Performed: 17:06 <Deangelo Tong - Last Filed: 12/16/19 13:11> ED HPI GENERAL MEDICAL PROBLEM - General Source of Information: Reports: Patient, Family, RN Notes Reviewed - History of Present Illness INITIAL COMMENTS - FREE TEXT/NARRATIVE: 34 year old male presents to ED with racing thoughts, pressured speech, inability to sleep. This all started many weeks ago but has become much worse the past few days. Patient admits "my mind is not clear, "I know I am off". His states that he has not slept well if it all for at least several nights. He has been sending mostly inappropriate texts to her "[id number] for the last 48 hours or more. This evening he has been making statements that "he is afraid he will and not be around anymore", afraid that "someone might shoot him". She does not believe that he is safe to be at home. She knows that he needs psychiatric treatment. He does have hx of depression, anxiety. His believes he is bipolar but he has not been formally diagnosed with that to the best of her knowledge. He has been on meds for anxiety and depression in the past but not anything at all for the last 1 to 2 yrs. He denies alcohol or drug usage. He does not feel suicidal and not having active visual or auditory hallucinations at time of exam. Past Medical History - Past Health History Medical/Surgical History: Denies Medical/Surgical History Other HEENT History: wears glasses Cardiovascular History: Reports: Hypertension Gastrointestinal History: Reports: GERD Other Musculoskeletal History: work-related crush injury to right lower extremity Psychiatric History: Reports: Anxiety, Depression - Past Surgical History HEENT Surgical History: Reports: Tonsillectomy GI Surgical History: Reports: Hernia, Abdominal Musculoskeletal Surgical History: Reports: Other (See Below) Other Musculoskeletal Surgeries/Procedures:: right ankle surgery-fusion Social & Family History - Family History Family Medical History: Noncontributory - Tobacco Use Smoking Status *Q: Unknown Ever Smoked - Caffeine Use Caffeine Use: Reports: Soda - Living Situation & Occupation Occupation: Unemployed ED ROS GENERAL - Review of Systems Review Of Systems: See Below Constitutional: Denies: Fever, Chills HEENT: Denies: Sinus Problem, Throat Pain Respiratory: Denies: Shortness of Breath Cardiovascular: Denies: Chest Pain GI/Abdominal: Denies: Abdominal Pain, Nausea, Vomiting Musculoskeletal: Reports: No Symptoms Skin: Reports: No Symptoms Neurological: Reports: No Symptoms Psychiatric: Reports: Anxiety, Mood Lability. Denies: Hallucinations, Homicidal Ideation, Suicidal Ideation ED EXAM, NEURO - Physical Exam Exam: See Below General Appearance: Alert, Anxious, Mild Distress, Other (Pacing, pressured speech, unable to sit or lie still at time of inial exam) Eye Exam: Bilateral Eye: PERRL Ears: Normal External Exam Throat/Mouth: Normal Inspection Head Exam: Atraumatic. No: Facial Swelling Neck: Supple Respiratory/Chest: No Respiratory Distress, Lungs Clear, Normal Breath Sounds Cardiovascular: Regular Rate, Rhythm GI/Abdominal: Soft, Non-Tender Neurological: Alert, No Motor/Sensory Deficits Extremities: Normal Inspection, Normal Range of Motion Psychiatric: Other (pressured speech, pacing, not actively or blatently psychotic at time of initial exam) Skin Exam: Warm, Normal Color Course - Re-Assessments/Exams Free Text/Narrative Re-Assessment/Exam: 12/15/19 02:05. We have given Ativan 1 mg PO 3, Zyprexa 5 mg by mouth 2 over the past several hours. He still does not look or act sedated, has continued to pace most of the time that he has been here. His labs have come back normal, with alcohol 0, he still has not voided for a urine drug screen. We have checked for availability mental health both [facility] and [facility] in [place] and both are full. Charlie does expect that they will have multiple discharges today so "will likely" have a bed available later today. I have visited with his . She would prefer that he be in [place] if possible. At this time we have not checked with Nikolai or [facility]. Do not feel that it is safe for him to go home. I did convince the patient that an IV would be helpful for him. Have ordered an IV normal saline at 150 per hour, 2 mg IV Ativan with the hopes that he will relax and sleep for a while. We can than have one of our social workers continue to coordinate a reasonable transfer option once they come on duty this morning. 12/15/19 03:05. Patient not sleeping at this time but he is at least resting on the clot, no longer pacing after the 2 mg IV Ativan 12/15/19 04:00. Sleeping. 12/15/19 07:42. Still Sleeping. After change of shift. Will transfer care to Dr Santiago. Departure - Departure Condition: Serious Sepsis Event Note - Evaluation Sepsis Screening Result: No Definite Risk - Focused Exam Date Exam was Performed: 12/16/19 Time Exam was Performed: 13:10
[2019-12-15] MEDS ORDERED: Sodium Chloride 0.9% 10 ML Syringe FLUSH PRN (02:15)
[2019-12-15] MEDS ORDERED: LORazepam 2 MG/ML SDV IVPUSH ONE (02:15)
[2019-12-15] MEDS: Sodium Chloride 0.45% 1,000 ML IV SCH ×2 (02:29→09:08)
== END 2019-12-15 17:44 ==
LOC: JD.ED 23:01
DX: F31.62 Bipolar disorder, current episode mixed, moderate (principal); I10 Essential (primary) hypertension; K21.9 Gastro-esophageal reflux disease without esophagitis; Z79.899 Other long term (current) drug therapy
CPT/HCPCS: 36415; 80053; 80306; 80320; 80329; 85025; 96361; 96374; 99285; A9270; J2060; J7030; 99284; G0480